=== PATIENT | female | born 1980 | race African-American/Black ===

== ENCOUNTER 2020-11-28 12:47 | Emergency (ER) | payer OTHER ==
[~2020-11-28] VITALS: Ht 157.5 cm; Wt 81.7 kg
[2020-11-28 12:48] VITALS: BP 170/111
== END 2020-11-28 15:11 | disposition home or self-care (01) ==
LOC: ER 12:47
DX: M54.5 Low back pain (principal); I10 Essential (primary) hypertension; V89.2XXA Person injured in unspecified motor-vehicle accident, traffic, initial encounter; Y93.19 Activity, other involving water and watercraft; Y92.89 Other specified places as the place of occurrence of the external cause; Y99.8 Other external cause status

== ENCOUNTER 2021-01-12 14:01 | Emergency (ER) | payer OTHER ==
[~2021-01-12] VITALS: Ht 157.5 cm; Wt 81.7 kg
[2021-01-12 14:04] VITALS: BP 142/93
[2021-01-12] MEDS ORDERED: CYCLOBENZAPRINE5 MG PO (15:23)
== END 2021-01-12 15:23 | disposition home or self-care (01) ==
LOC: ER 14:01
DX: M46.1 Sacroiliitis, not elsewhere classified (principal); M25.572 Pain in left ankle and joints of left foot; M54.31 Sciatica, right side; I10 Essential (primary) hypertension